=== PATIENT | male | born 1955 | race Caucasian/White ===

== ENCOUNTER 2016-06-25 10:49 | Emergency (ER) | payer MEDICAID ==
[~2016-06-25] VITALS: Ht 182.9 cm; Wt 100.0 kg
[~2016-06-25 10:49] MED LIST: GABA600T PO; LISI-515 PO; TRAZ50TA12 PO
--- NOTE | 2016-06-25 11:54 | PD ---
HPI Chief Complaint: Code Blue Time Seen by Provider: 11:06 Travel History International Travel<30 days: No Contact w/Intl Traveler<30days: No History of Present Illness HPI Patient is a 61-year-old male who presents to emergency room in cardiac arrest by EMS. As per EMS, they were called to patient's family member's home as patient was intoxicated and was sitting on the front porch. Reports that when the right on scene, patient was unresponsive. Reports that vitals were stable on route to the emergency room, reports that patient went into cardiopulmonary arrest upon presentation to the emergency room. EMS did check patient's blood sugar and did report that his blood sugar was in the 30s, it is unknown if any glucose was given to patient on scene. Patient presents to emergency room in cardiopulmonary arrest, patient did not have IV access upon arrival to ER Please see code sheet for CODE BLUE workup PFSH Past Medical History Hx Anticoagulant Therapy: No Arthritis: Yes Asthma: No Autoimmune Disease: No Blood Disorders: No Anxiety: Yes Depression: Yes Heart Rhythm Problems: No Cancer: No Cardiovascular Problems: Yes High Cholesterol: No Chemotherapy: No Chest Pain: No Congestive Heart Failure: Yes Cirrhosis: Yes COPD: No Cerebrovascular Accident: No Cystic Fibrosis: No Diabetes: No Diminished Hearing: Yes (BILATERAL) Diverticulitis: Yes Endocrine: No Gastrointestinal Disorders: Yes (CHRONIC DIARRHEA) GERD: Yes Glaucoma: No Genitourinary: No Headaches: No Hepatitis: Yes (HEP C) Hiatal Hernia: No Hypertension: Yes Immune Disorder: No Implanted Vascular Access Dvce: No Kidney Stones: No Musculoskeletal: Yes Neurologic: Yes Psychiatric: No Reproductive: No Respiratory: No Immunizations Current: Yes Migraines: Yes Myocardial Infarction: No Pancreatitis: Yes (?) Radiation Therapy: No Renal Failure: No Seizures: Yes (during withdrawal) Sickle Cell Disease: No Sleep Apnea: No Thyroid Disease: No Ulcer: No PNEUMOCCOCAL Vaccine (Year): 2 Past Surgical History Abdominal Surgery: No AICD: No Appendectomy: No Arteriovenous Shunt: No Cardiac Surgery: No Cholecystectomy: No Ear Surgery: No Endocrine Surgery: No Eye Surgery: No Genitourinary Surgery: No Gynecologic Surgery: No Hysterectomy: No Insulin Pump: No Joint Replacement: No Neurologic Surgery: No Oral Surgery: Yes (TEETH EXTRACTIONS) Pacemaker: No Thoracic Surgery: No Tonsillectomy: Yes Other Surgery: No Social History Alcohol Use: Yes (PT ADMITS TO HEAVY ETOH USE DAILY) Tobacco Use: No (PT DENIES) Substance Use: Yes (ETOH, UNSPECIFIED AMOUNT TODAY) Allergies-Medications (Allergen,Severity, Reaction): Coded Allergies: No Known Allergies (Unverified , 06/25/16) Reported Meds & Prescriptions Reported Meds & Active Scripts Active Active Prescriptions or Reported Medications Unobtainable Review of Systems ROS Limitations: Altered Mental Status, Unresponsive Physical Exam Exam Limitations: Altered Mental Status Narrative GENERAL: Patient unresponsive and PE arrest SKIN: dusky. HEAD: Atraumatic. Normocephalic. EYES: Pupils are 3, dilated and nonreactive ENT: No nasal bleeding or discharge. Mucous membranes pink and moist. NECK: Trachea midline. No JVD. CARDIOVASCULAR: pt in pea arrest, CPR in prgoress RESPIRATORY: Patient currently being bmv'ed GASTROINTESTINAL: Abdomen soft, non-tender, nondistended. MUSCULOSKELETAL: No obvious deformities. Patient with bruising to left lower extremity MDM Medical Decision Making Medical Screen Exam Complete: Yes Emergency Medical Condition: Yes Differential Diagnosis Cardiopulmonary arrest secondary to intracranial hemorrhage versus PE, ACS, electrolyte abnormality, pneumothorax, pneumoperitoneum, GI bleed Narrative Course 61-year-old male who presents to emergency room in cardiopulmonary arrest after he was found unresponsive in front of a family member's home. Patient went into cardiac pulmonary arrest on arrival to emergency room. ACLS protocol was initiated immediately, patient was intubated using a 7.5 ET tube. Blood sugar was 30 in the field, patient was given 2 amps of D50, epi and acls protocol initiated. Patient with no cardiac activity throughout code. patient remained in PEA arrest Please see code record for details of code. time of : 1104 Procedures Procedure Narrative After the risks and benefits were discussed the following procedure was performed: INTUBATION: The patient was put in optimal position for the procedure. No RSI was needed as patient was and cardiopulmonary arrest. The patient was intubated with a 7.5 cuffed endotracheal tube. Tube placement was confirmed by visualization of the tube and balloon passing through the cords, capnometry and subsequent chest x-ray. Breath sounds were equal and well aerated bilaterally postintubation. No breath sounds over stomach. Patient tolerated procedure well. Diagnosis Primary Impression: Cardiopulmonary arrest Scripts Unable to Obtain Active Prescriptions or Reported Meds Disposition: 20 Nohemy Mccarthy DO Jun 25, 2016 11:54
[2016-06-25] MEDS ORDERED: CALCIUM CHLORIDE 10% SOLN 1 GRAM/10 ML SYR IV ONE (14:53)
[2016-06-25] MEDS ORDERED: EPINEPHrine HCL (1:10,000) 1 MG/10 ML SYRINGE IV ONE (14:53)
[2016-06-25] MEDS ORDERED: SODIUM BICARBONATE 8.4% INJ 50 MEQ/50 ML SYR IV ONE (14:53)
== END 2016-06-25 16:14 | disposition expired ==
LOC: NEPE 10:49 → NEPI 16:14
DX: I46.9 Cardiac arrest, cause unspecified (principal)
CPT/HCPCS: 31500; 92950; 99285; J0171